=== PATIENT | male | born 1985 | race Caucasian/White ===

== ENCOUNTER 2023-12-24 21:18 | Emergency (ER) | payer OTHER ==
[~2023-12-24] VITALS: Ht 172.7 cm; Wt 79.8 kg
[2023-12-24 21:36] VITALS: BP_SYST 130; PULSE 73; RESP 18; TEMP 97.7; O2SAT 98
[2023-12-24] MEDS ORDERED: IBUP-1969 PO (23:32)
[2023-12-24] MEDS ORDERED: LIDOINT TP (23:32)
[2023-12-24] MEDS: KETOROLAC TROMETHAMINE 30 MG VIAL IM ONE (23:39)
[2023-12-24] MEDS: LIDOCAINE PATCH 5% 1 EA TP ONE (23:42)
[2023-12-25 00:23] VITALS: BP_SYST 124; PULSE 75; RESP 18; TEMP 97.9; O2SAT 98
== END 2023-12-25 | disposition home or self-care (01) ==
LOC: SED 21:18
DX: M25.511 Pain in right shoulder (principal); Z98.890 Other specified postprocedural states; Z79.899 Other long term (current) drug therapy
CPT/HCPCS: 99283; 96372; J1885